=== PATIENT | female | born 1995 | race Hispanic/Latino ===

== ENCOUNTER 2017-02-14 15:09 | Emergency (ER) | payer OTHER ==
[~2017-02-14] VITALS: Ht 160 cm; Wt 63.5 kg
[~2017-02-14 15:09] MED LIST: ZOFRAN ODT4 M1 SL
[2017-02-14 15:33] VITALS: BP 119/74
--- NOTE | 2017-02-14 15:46 | RADIOLOGY REPORT ---
EXAMINATION: XR FINGER, LEFT CLINICAL INFORMATION: Left first finger injury COMPARISON: None TECHNIQUE: Three views of the left hand first digit. FINDINGS: No fracture or cortical disruption. Alignment is anatomic. Joint spaces are maintained. The soft tissues are unremarkable. IMPRESSION: Normal finger radiographs.
--- NOTE | 2017-02-14 15:53 | ED HAND/WRIST INJURY COMPLAINT ---
History of Present Illness General Chief Complaint: Hand or Wrist Injury Stated Complaint: SLAMMED LEFT THUMB IN CABINET AT WORK Source: patient, family, old records Exam Limitations: no limitations Vital Signs & Intake/Output Vital Signs & Intake/Output Vital Signs Date Time Temp Pulse Resp B/P B/P Pulse O2 O2 Flow FiO2 Mean Ox Delivery Rate 02/14 1533 97.9 66 14 119/74 100 Room Air ED Intake and Output 02/15 0000 02/14 1200 Intake Total Output Total Balance Patient 140 lb Weight Weight Reported by Patient Measurement Method Allergies Coded Allergies: No Known Allergies (07/17/16) Reconcile Medications Ondansetron (Zofran Odt) 4 MG TAB.RAPDIS 1 TAB SL TID nausea Triage Note: PT TO ED AFTER SLAMMING L THUMB IN A CABINET AT WORK. TAKEN TO XRAY FROM TRIAGE. Triage Nurses Notes Reviewed? yes Occurred: just prior to arrival Duration: hour(s): (1), constant Timing: recent history Injury Environment: home Severity: mild, moderate Severity Numbers: 4 Pain/Injury Location: Left: 1st finger. Context: blow Associated Symptoms: none : No Patient currently breastfeeds: No HPI: 21-year-old female presents with a [id number] aching pain to her left first finger status post sustaining injury at work just prior to arrival when she closed her finger in a cabinet. She is not taken it for symptoms since it on anything offered. She denies any difficulty with range of motion no numbness or tingling there is no other injury no other finger or hand pain. (DEYSI MCINTYRE) Past History Travel History Traveled to [place] past 21 day No Medical History Any Pertinent Medical History? none Neurological: NONE EENT: NONE Cardiovascular: NONE Respiratory: NONE Gastrointestinal: NONE Hepatic: NONE Renal: NONE Musculoskeletal: NONE Psychiatric: NONE Endocrine: NONE Blood Disorders: NONE Cancer(s): NONE Surgical History Surgical History: non-contributory Psychosocial History What is your primary language Maltese Tobacco Use: Never used ETOH Use: denies use Illicit Drug Use: denies illicit drug use Family History Hx Contributory? No (DEYSI MCINTYRE) Review of Systems Review of Systems Constitutional: Reports: see HPI. All Other Systems: Reviewed and Negative Comments Review of systems: See HPI, All other systems negative. Constitutional, no chills no fever, no malaise HEENT: No visual changes no sore throat no congestion Cardiovascular: No chest pain , no palpitation Skin: no rashes, no change in skin Respiratory: No dyspnea no cough no sputum GI: No nausea no vomiting, no diarrhea, : No dysuria Muscle skeletal: No joint pain, , no back pain, no neck pain, Neurologic: No numbness no headache Psych: No stress Heme/endocrine: No bruising no bleeding Immunology: No lymphadenopathy (DEYSI MCINTYRE) Physical Exam Physical Exam General Appearance: well developed/nourished, alert, awake Hand Left: normal range of motion Hand Right: normal inspection, normal range of motion Comments: Well-developed well-nourished patient in no apparent distress. HEENT: Atraumatic, extraocular motion intact Neck: Supple, FROM Back: FROM Cardiovascular: Regular rate and rhythms no murmurs rubs Respiratory: No respiratory distress. Patient speaking in full complete sentences. Breath sounds clear to auscultation bilaterally: NO W/R/R Shoulder: Atraumatic/Stable. FROM . Elbow: Atraumatic/stable. FROM. No laxity Upper arm/Forearm: Atraumatic. Nontender. 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 Sensation Skin intact. FROM Pulses: Normal/equal radial pulses bilaterally. Brisk cap refill Lower Extremities: full range of motion Neuro: awake, alert, and oriented to person, place and time. There were no obvious focal neurologic abnormalities. Skin: Warm & dry;No appreciable rash on exposed skin Psych: Mood affect normal, normal memory normal judgment. (DEYSI MCINTYRE) Progress Differential Diagnosis: cellulitis, contusion, compartment syndrome, fracture, sprain Plan of Care: Current Medications Sig/Yelena Start time Last Medication Dose Stop Time Status Admin Tetanus/Diphtheria 0.5 ML ONCE ONE 02/14 1615 UNVr Toxoids Adsorbed 02/15 1616 (Decavac) Wound was thoroughly irrigated with normal saline Betadine peroxide. Dermabond was applied to the nail laceration still dressing applied Discussed the patient her x-ray results need for supportive care rest ice, Motrin. I discussed with the patient at length all of their results. I had an extensive conversation regarding need for close follow up with their primary care physician this week as well as return precautions. I answered all of their questions, they feel comfortable with the plan and follow-up care. (DEYSI MCINTYRE) Diagnostic Imaging: Viewed by Me: Radiology Read. Discussed w/RAD: Radiology Read. Radiology Impression: PATIENT: EUGENIA AUGUSTE PRESENT AGE: 21 PATIENT ACCOUNT NO: [id number] : 97 LOCATION: [facility], [place] ORDERING PHYSICIAN: DEYSI KHAN SERVICE DATE: 02/14/17-1510 EXAM TYPE: RAD - XRY- FINGERS, LEFT EXAMINATION: XR FINGER, LEFT CLINICAL INFORMATION: Left first finger injury COMPARISON: None TECHNIQUE: Three views of the left hand first digit. FINDINGS: No fracture or cortical disruption. Alignment is anatomic. Joint spaces are maintained. The soft tissues are unremarkable. IMPRESSION: Normal finger radiographs. DICTATED BY: PAUL AMBRIZ,PABLO DATE/TIME DICTATED :02/14/171538 [employer] MOBILITY ARCHITECT:GEO DATE/TIME TRANSCRIBED:02/14/171538 CONFIDENTIAL, DO NOT COPY WITHOUT APPROPRIATE AUTHORIZATION. < Electronically signed in Other Vendor System> SIGNED BY: PAUL AMBRIZ, PABLO 02/14/17 1546 (DEYSI MCINTYRE) Departure Departure Time of Disposition: 1601 Disposition: HOME OR SELF CARE Condition: Stable Clinical Impression Primary Impression: Finger contusion Referrals: KWAN AMBRIZ,DEBRA Fleming (PCP/Family) Additional Instructions: rest, ice Tylenol Motrin as needed for pain. Follow-up with her primary care physician or return to ER with any concerns. the dermabond will dissolve on its own Departure Forms: Customer Survey General Discharge Information (DEYSI MCINTYRE) PA/SOCIAL SERVICE ASSISTANT Co-Sign Statement Statement: ED Attending supervision documentation- [] I saw and evaluated the patient. I have also reviewed all the pertinent lab results and diagnostic results. I agree with the findings and the plan of care as documented in the PA's/SOCIAL SERVICE ASSISTANT's documentation. [X] I have reviewed the ED Record and agree with the PA's/SOCIAL SERVICE ASSISTANT's documentation. [] Additions or exceptions (if any) to the PAs/SOCIAL SERVICE ASSISTANT's note and plan are summarized below: [] (PA AMBRIZ,NARGIS)
== END 2017-02-14 16:32 ==
LOC: ERH 15:09
DX: S60.012A Contusion of left thumb without damage to nail, initial encounter (principal); X58.XXXA Exposure to other specified factors, initial encounter; Y92.9 Unspecified place or not applicable; Y93.9 Activity, unspecified
CPT/HCPCS: 73140-LT; 90471; 90714